=== PATIENT | male | born 1980 | race Caucasian/White ===

== ENCOUNTER 2017-12-24 14:41 | Emergency (ER) | payer OTHER ==
[~2017-12-24] VITALS: Ht 185.4 cm; Wt 122.5 kg
[2017-12-24 15:03] VITALS: BP 129/86
[2017-12-24] MEDS ORDERED: cefTRIAXone W LIDOCAINE 1 GM IM IM ONE (15:30)
[2017-12-24] MEDS ORDERED: CLINDAMYCIN 600 MG/4 ML VL IM ONE (15:30)
[2017-12-24 15:36] LABS: Basophils # (auto) 0 uL; Basophils % (auto) 0.3 % (0.0-2.0); Eosinophils # (auto) 0.1 uL; Hematocrit 45.9 % (41.0-53.0); Hemoglobin 15.3 g/dL (13.5-17.5); Mean Corpuscular Hemoglobin 29.4 pg (28.0-32.0); Mean Corpuscular Hgb Conc. 33.4 g/dL (32.0-36.0); Mean Corpuscular Volume 88.1 fL (80.0-100.0); Monocytes # (auto) 0.9 uL; Monocytes % (auto) 7.2 % (0.0-12.0); Neutrophils # (auto) 9.7 uL; Neutrophils % (auto) 75.5 % (37.0-80.0); Platelet Count (auto) 234 10^3/uL (140-450); Red Blood Cells 5.21 10^6/uL (4.5-5.90); Red Cell Distribution Width 13.9 % (11.8-14.3); White Blood Cell 12.8 10^3/uL (4.4-10.8)
[2017-12-24 15:58] LABS: Albumin 3.8 g/dL (3.4-5.0); BUN/Creatinine Ratio 13.9; Bilirubin, Total 0.8 mg/dL (0.2-1.0); Calcium 8.8 mg/dL (8.5-10.1); Potassium 3.8 mmol/L (3.5-5.1); Total Protein 8.1 g/dL (6.4-8.2)
== END 2017-12-24 16:25 | disposition home or self-care (01) ==
LOC: ER 14:41
DX: L03.317 Cellulitis of buttock (principal)
CPT/HCPCS: 36415; 80053; 85025; 96372; 99284; J0696